=== PATIENT | male | born 1935 | race Caucasian/White ===

== ENCOUNTER 2016-02-28 16:05 | Emergency (ER) | payer OTHER ==
[2016-02-28 16:14] VITALS: BMI 24.5
--- NOTE | 2016-02-28 16:48 | PDOC ---
History of Present Illness - General History Source: Patient, Family Exam Limitations: No Limitations, Language Barrier - History of Present Illness Initial Comments: 02/28/16 17:06 The patient is a year old male, with a significant past medical history of gastritis, diabetes mellitus, hypertension, hyperlipidemia, and depression( after passed) who presents to the emergency department complaining of inter left lower quadrant abdominal pain for several days. The patient describes the pain as if someone were digging into his left lower abdominal region, and denies that is stabbing, sharp, or crampy in nature. He rates the pain as a 7/10. As per son, the patient was seen for similar symptoms back in October. He reports the patient has taken tylenol for his abdominal pain in the past, with no relief. The son reports the patient has been eating normally. The patient denies any associated nausea, vomiting, diarrhea, constipation, or changes in urination patterns. The patient denies any fever, chills, cough, headache, or dizziness. The patient denies any recent travel. The patient denies any sick contacts. Allergies: None reported. Past Surgical History: None reported. Social History: Non-smoker. Denies alcohol or drug use. PCP: Dr. Ascencion Holland <Rigo Elias - Last Filed: 02/28/16 21:26> <Radha Pérez - Last Filed: 02/28/16 21:42> - General Chief Complaint: Pain Stated Complaint: STOMACH PAIN Time Seen by Provider: 02/28/16 16:23 Past History <Rigo Elias - Last Filed: 02/28/16 21:26> - Past Medical History Diabetes: Yes GI Disorders: Yes HTN: Yes Hypercholesterolemia: Yes Psychiatric Problems: Yes (DEPRESSION) Suicide Attempt (Hx): No - Immunization History Td Vaccination: No - Psycho/Social/Smoking Cessation Hx Anxiety: No Suicidal Ideation: No Smoking Status: No Smoking History: Never smoked Have you smoked in the past 12 months: No Number of Cigarettes Smoked Daily: 0 Hx Alcohol Use: No Drug/Substance Use Hx: No Substance Use Type: None <Radha Pérez - Last Filed: 02/28/16 21:42> - Past Medical History Allergies/Adverse Reactions: Allergies Allergy/AdvReac Type Severity Reaction Status Date / Time No Known Allergies Allergy Verified 02/28/16 16:11 Home Medications: Ambulatory Orders Metformin HCl 500 mg PO BID 09/20/14 Paroxetine Mesylate [Brisdelle] 25 mg PO DAILY 07/28/15 Lorazepam 1 mg PO HS 10/19/15 Dicyclomine HCl 10 mg PO BID 02/28/16 Losartan Potassium 100 mg PO DAILY 02/28/16 Quetiapine Fumarate [Seroquel -] 25 mg PO HS 02/28/16 Review of Systems - Review of Systems Able to Perform ROS?: Yes Comments:: 02/28/16 17:06 GENERAL/CONSTITUTIONAL: No fever or chills. No weakness. HEAD, EYES, EARS, NOSE AND THROAT: No change in vision. No ear pain or discharge. No sore throat. CARDIOVASCULAR: No chest pain or shortness of breath. RESPIRATORY: No cough, wheezing, or hemoptysis. GASTROINTESTINAL: +LLQ abdominal pain. No nausea, vomiting, diarrhea or constipation. GENITOURINARY: No dysuria, frequency, or change in urination. MUSCULOSKELETAL: No joint or muscle swelling or pain. No neck or back pain. SKIN: No rash NEUROLOGIC: No headache, vertigo, loss of consciousness, or change in strength/ sensation. ENDOCRINE: No increased thirst. No abnormal weight change. HEMATOLOGIC/LYMPHATIC: No anemia, easy bleeding, or history of blood clots. ALLERGIC/IMMUNOLOGIC: No hives or skin allergy. <Rigo Elias - Last Filed: 02/28/16 21:26> *Physical Exam - Vital Signs Last Vital Signs Temp Pulse Resp BP Pulse Ox 98.5 F 69 18 140/69 100 02/28/16 16:10 02/28/16 16:10 02/28/16 16:10 02/28/16 16:10 02/28/16 16:10 - Physical Exam Comments: 02/28/16 17:07 GENERAL: +Moderate distress. Awake, alert, and fully oriented. HEAD: No signs of trauma EYES: PERRLA, EOMI, sclera anicteric, conjunctiva clear ENT: Auricles normal inspection, hearing grossly normal, nares patent, oropharynx clear without exudates. Moist mucosa NECK: Normal ROM, supple, no lymphadenopathy, JVD, or masses LUNGS: Breath sounds equal, clear to auscultation bilaterally. No wheezes, and no crackles HEART: Regular rate and rhythm, normal S1 and S2, no murmurs, rubs or gallops ABDOMEN: +Diffuse tenderness, worse in the LLQ with guarding, but no rebound. Normoactive bowel sounds. No masses EXTREMITIES: Normal range of motion, no edema. No clubbing or cyanosis. No cords , erythema, or tenderness NEUROLOGICAL: Cranial nerves II through XII grossly intact. Normal speech, normal gait SKIN: Warm, Dry, normal turgor, no rashes or lesions noted. <Rigo Elias - Last Filed: 02/28/16 21:26> - Vital Signs Last Vital Signs Temp Pulse Resp BP Pulse Ox 98.5 F 69 18 140/69 100 02/28/16 16:10 02/28/16 16:10 02/28/16 16:10 02/28/16 16:10 02/28/16 16:10 <Radha Pérez - Last Filed: 02/28/16 21:42> ED Treatment Course - LABORATORY CBC & Chemistry Diagram: 02/28/16 17:15 02/28/16 17:15 - RADIOLOGY Radiograph Interpretation: 02/28/16 21:27 EXAM: Abdomen CT INTERPRETED BY: Dr. Conner REVIEWED BY: Dr. Pérez IMPRESSION: The heart is mildly enlarged. 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 There is a stone in the region of the gallbladder neck without gallbladder wall thickening or pericholecystic edema to suggest acute cholecystitis. There is bilateral perinephric stranding, possibly chronic changes. No evidence of obstructive uropathy The upper abdominal visceral organs are otherwise unremarkable. There is no bowel obstruction or distention. The terminal ileum is unremarkable. The appendix is not visualized Moderate fecal retention in the left colon. No evidence of acute diverticulitis. The prostate is mildly enlarged. There are bilateral inguinal hernias containing fat. <Rigo Elias - Last Filed: 02/28/16 21:26> - LABORATORY CBC & Chemistry Diagram: 02/28/16 17:15 02/28/16 17:15 <Radha Pérez - Last Filed: 02/28/16 21:42> Medical Decision Making - Medical Decision Making 02/28/16 21:41 CT results d/w son. +Gallstones, but no acute findings to explain the lower abdominal pain. Recommended that they f/u with GI as outpatient- have seen Dr. Otto in the past. <Radha Pérez - Last Filed: 02/28/16 21:42> *DC/Admit/Observation/Transfer - Attestations Scribe Attestion: 02/28/16 17:09 Documentation prepared by Rigo Elias, acting as medical coding manager for Radha Pérez MD. <Rigo Elias - Last Filed: 02/28/16 21:26> - Discharge Dispostion Admit: No <Radha Pérez - Last Filed: 02/28/16 21:42> Diagnosis at time of Disposition: Abdominal pain Qualifiers: Abdominal location: lower abdomen, unspecified Qualified Code(s): R10.30 - Lower abdominal pain, unspecified - Discharge Dispostion Disposition: HOME Condition at time of disposition: Stable - Referrals Referrals: Ascencion Holland MD [Primary Care Provider] -
[2016-02-28] MEDS ORDERED: SODIUM CHLORIDE 1,000 ML IV STA ×2 (17:03→20:23)
[2016-02-28] MEDS ORDERED: ACETAMINOPHEN 1000 MG/100 ML VIAL (NON FORMULARY) IVPB ONE (17:03)
[2016-02-28] MEDS ORDERED: ACETAMINOPHEN INJECTION 100 ML IVPB ONE (17:06)
[2016-02-28 17:23] LABS: BASOPHIL 0.8 % (0-2.0); EOSINOPHIL 0.6 % (0-4.5); MCH 30.2 pg (25.7-33.7); MCHC 33.4 g/dl (32.0-35.9); MEAN CELL VOLUME 90.2 fl (80-96); NEUTROPHILS 73.9 % (42.8-82.8); PLATELET COUNT 169 K/MM3 (134-434); RDW 14.3 % (11.9-15.9); WHITE BLOOD COUNT 11.4 K/mm3 (4.0-10.0)
[2016-02-28 17:56] LABS: ALBUMIN 3.6 g/dl (3.4-5.0); ANION GAP 11 (8-16); BILIRUBIN,TOTAL 0.6 mg/dL (0.2-1.0); CALCIUM 8.1 mg/dL (8.5-10.1); CO2 23 mmol/L (21-32); CREATININE 1.2 mg/dL (0.7-1.3); GLUCOSE,RANDOM 275 mg/dL (74-106); SGOT/AST 16 U/L (15-37); SGPT/ALT 31 U/L (12-78); TOT PROT 7.1 g/dl (6.4-8.2)
[2016-02-28 17:59] LABS: ALK PHOS 62 U/L (45-117); TROPONIN I < 0.02 ng/ml (0.00-0.05)
[2016-02-28 18:23] LABS: URINE APPEARANCE CLEAR; URINE BILIRUBIN NEGATIVE (NEGATIVE); URINE COLOR STRAW; URINE GLUCOSE (UA) 3+ (NEGATIVE); URINE KETONE NEGATIVE (NEGATIVE); URINE LEUK ESTERASE NEGATIVE (NEGATIVE); URINE NITRITE NEGATIVE (NEGATIVE); URINE PROTEIN NEGATIVE (NEGATIVE); URINE UROBILINOGEN NEGATIVE E.U./dl (0.2-1.0)
[2016-02-28 18:27] LABS: URINE BLOOD 1+ (NEGATIVE)
[2016-02-28 18:30] LABS: URINE RBC 1 /hpf (0-3); URINE WBC <1 /hpf (3-5)
[2016-02-28 20:24] VITALS: BP 164/79; PULSE 50
[2016-02-28 21:03] VITALS: TEMP 98.7
== END 2016-02-28 22:04 | disposition home or self-care (01) ==
LOC: SUPCPDRO 16:05 → JER 16:05
PROC: 3E0337Z Introduction of Electrolytic and Water Balance Substance into Peripheral Vein, Percutaneous Approach (ICD-10-PCS; principal; 2016-02-28)
PROC: 3E033NZ Introduction of Analgesics, Hypnotics, Sedatives into Peripheral Vein, Percutaneous Approach (ICD-10-PCS; 2016-02-28)
DX: R10.32 Left lower quadrant pain (principal); I10 Essential (primary) hypertension; E11.9 Type 2 diabetes mellitus without complications; Z79.84 Long term (current) use of oral hypoglycemic drugs; E78.00 Pure hypercholesterolemia, unspecified; F32.9 Major depressive disorder, single episode, unspecified
CPT/HCPCS: 36415; 74177-TC; 80053; 81003; 81015; 82550; 83690; 84484; 85025; 96361; 96374; 99283-25